=== PATIENT | male | born 1970 | race Caucasian/White ===

== ENCOUNTER 2023-03-08 08:19 | Day surgery (SDC) | payer OTHER, SELFPAY ==
[2023-03-08] VITALS (27 sets, daily range): BP systolic 98–160; BP diastolic 61–91; PULSE 53–75; RESP 14–18; TEMP 35.8–37.1; O2SAT 92–99; BMI 33.3
[2023-03-08] MEDS: LACTATED RINGERS 1000 ML 1,000 ML 100 ML IV ×2 (08:30→10:08)
[2023-03-08] MEDS: MIDAZOLAM HCL 1 MG/ML inj IVP (09:04)
[2023-03-08] MEDS: ACETAMINOPHEN 500 MG TABLET 1000 MG PO ×3 (09:04→20:32)
[2023-03-08] MEDS: OXYCODONE (CR) 10 MG TAB.ER.12H PO (09:04)
[2023-03-08] MEDS: fentaNYL 100 MCG/2 ML inj IVP (09:42)
--- NOTE | 2023-03-08 09:57 | SUR.PREOP ---
TIME?OUT:?0940 PT/RN/MDA?VERIFICATION?OF?SURGICAL?SITE,?PROCEDURE,?AND?CONSENT OBTAINED?PRIOR?TO?INVASIVE?PROCEDURE.
[2023-03-08] MEDS: CEFAZOLIN 2 GM in 0.9 % SODIUM CHLORIDE Mini-bag 100 ML IVPB ×3 (10:05→23:47)
[2023-03-08] MEDS: TRANEXAMIC ACID 100 MG/ML INJ 1000 MG IV (10:07)
--- NOTE | 2023-03-08 10:09 | CRLHL7_ITS ---
For Patients: As a result of the Cures Act, medical imaging exams and procedure reports are released immediately into your electronic medical record. You may view this report before your referring provider. If you have questions, please contact your health care provider. Indication: Postop Technique: Two views left knee Findings/Impression: Hardware from a left total knee arthroplasty is in satisfactory position. Bone alignment is normal. No sign of acute fracture. Postop changes are within normal limits. Dictated by Mal Espinoza MD @ 03/08/2023 12:31:56 PM (Electronically Signed)
--- NOTE | 2023-03-08 10:12 | W.PM.H&PU ---
History & Physical Update History & Physical Update H&P Reviewed and patient assessed: No changes noted
--- NOTE | 2023-03-08 11:34 | PM.ORPRC ---
Procedure Note Date of procedure: 03/08/23 Procedure: PREOPERATIVE DIAGNOSIS: 1. Left knee osteoarthritis, primary, severe POSTOPERATIVE DIAGNOSIS: 1. Left knee osteoarthritis, primary, severe PROCEDURE: 1. Left total knee arthroplasty SURGEON: Boni Hayward MD. SUPERVISOR ENDLESS TRACK VEHICLE: TIFFANY Majano - Of note, a skilled assistant customer service manager was critical for this case to aid in patient positioning, tissue retraction, limb manipulation/positioning, and closure. ANESTHESIA: Spinal anesthetic EBL: 50ml IMPLANTS: DePuy J&J uncemented femur/tibia, cemented patella TKA - Attune Press fit PS femur size 9, size 8 tibia, 5 poly spacer, 41mm cemented patella TOURNIQUET: 85 min at 300 torr COMPLICATIONS: None evident INDICATIONS: The patient is a pleasant 52-year-old male who has experienced severe left knee pain and difficulty bearing weight. Workup included x-rays which revealed severe osteoarthrosis in the knee. Given the deformity, the dysfunction, and the pain, as well as the failure of nonoperative management, recommendation was made for surgery. FINDINGS: Full-thickness chondral loss medial compartment diffusely with subchondral sclerotic bone. Significant meniscal pathology both compartments. Significant patellofemoral chondromalacia as well. To lesser degree lateral compartment. Small effusion upon entering the joint today. DESCRIPTION OF PROCEDURE: Following a thorough discussion of risks, benefits, and alternatives consent was obtained and the left knee was marked. The patient was brought to the operating room and placed supine on the operating table. Induction of anesthesia was undertaken. 3 g IV Ancef and 1 g tranexamic acid was administered within 1 hr of incision preoperatively. Proper time-out was performed identifying proper patient, site, procedure. The operative extremity was prepped and draped in the appropriate sterile fashion using ChloraPrep after the patient was positioned supine with all bony prominences well padded. A longitudinal, anterior, midline skin incision was made starting approximately 3cm proximal to the superior pole of the patella and advanced distal to the tibial tubercle. A median parapatellar arthrotomy was created. A medial subperiosteal sleeve was created with knife, ornelas elevator and curved osteotome. The retropatellar fatpad was resected and the synovium in the suprapatellar pouch excised to visualize the anterior femoral cortex. Femoral preparation was performed via an intramedullary guide. Step drill allowed access into the femoral canal. The distal cutting guide was placed with 5? of valgus and 12 mm cut on the distal femur. Femur was sized using a posterior referencing guide in 3? of external rotation. This found have a best fit with the sizing noted above. The 4 in 1 cutting block was then placed, and the distal femur shaped accordingly. The box cut was then created and the trial implant inserted to confirm appropriate fit. We turned our attention to the proximal tibia. Extramedullary guide was utilized for cutting with the goal of being 90 degree cut from the mechanical axis of the tibia in the varus/valgus plane utilizing tibial crest as the primary alignment. Initially a 2 mm resection was performed from the medial tibial plateau. Ultimately, balancing was achieved in both flexion and extension in both varus and valgus. The knee was able to achieve full extension comfortably. The patella was initially measured and found have a thickness of 27 mm. It was resected back to approximately 17 mm. It was sized to be a best fit with as noted above. This was drilled & trial placed. All trials were placed and found to have an excellent stability and balance. At this stage, trial implants were removed, the tibia and femoral components were opened and inserted. Thereafter, the patella was thoroughly irrigated normal saline and dried. The cement was previously mixed on the back table and cement placed followed by the implant. This was clamped and allowed remained stable until the cement cured. The real poly spacer was opened and inserted. All extra cement was removed, and a 3 min Betadine soak performed. Finally, a final irrigation round with normal saline was performed. Closure performed with 0 PDS and #0 Stratafix for the quad tendon/retinaculum. 2-0 Vicryl/Stratafix for the subcutaneous and 4-0 Monocryl for subcuticular closure. Dressings were applied and the patient was awoken from anesthesia after the tourniquet deflated and transferred the PACU in stable condition. A skilled assistant customer service manager was critical for this case to aid in patient positioning, tissue retraction, bone exposure, limb manipulation/positioning, patient safety, and closure. PLAN: 1. Weight bear as tolerated operative extremity. 2. 23 hr perioperative antibiotics. 3. Ice. 4. PT/OT consults for ambulation assistance/mobility education. 5. Social work consult for discharge planning. 6. DVT prophylaxis with at SCDs, Carmelo Hose, and aspirin twice daily.
--- NOTE | 2023-03-08 11:41 | W.PM.NB ---
Nerve Block Nerve Block Time Seen by Provider: 09:41 Date Seen: 03/08/23 Type of block requested by surgeon for post-operative analgesia: adductor canal Side: left Time out performed: Yes Verification of patient name: Yes Verification of date of : Yes Site marking: site marked Name of person performing procedure: Alessandro Continuous monitoring Was continuous monitoring of O2 sat, B/P, director television news, recorded every 15 minutes?: Yes Procedure Checklist: sterile prep, needles and gloves Ultrasound guided. Images saved: Yes Medications given in 5ml increments after negative aspiration: Ropivicaine %: 0.5 mL: 20 Needle gauge: 20 Decadron (mg): 10 Precedex (mcg): 25 Patient tolerated procedure well: Yes Additional comments: Needle noted adjacent to nerve Block Charges Block Charge (with Pro Fee): Femoral Nerve Use of Ultrasound Machine for Block: Yes- US Guidance/pain block
--- NOTE | 2023-03-08 11:44 | P.NB_ITS ---
Nerve Block Nerve Block Time Seen by Provider: 09:41 Date Seen: 03/08/23 Type of block requested by surgeon for post-operative analgesia: geniculars Side: left Time out performed: Yes Verification of patient name: Yes Verification of date of : Yes Site marking: site marked Name of person performing procedure: Alessandro Continuous monitoring Was continuous monitoring of O2 sat, B/P, community relations police lieutenant, recorded every 15 minutes?: Yes Procedure Checklist: sterile prep, needles and gloves Medications given in 5ml increments after negative aspiration: Ropivicaine %: 0.5 mL: 9 Needle gauge: 25 Patient tolerated procedure well: Yes Block Charges Block Charge (with Pro Fee): Genicular Nerve Block Use of Ultrasound Machine for Block: No
--- NOTE | 2023-03-08 11:44 | W.ANESCHARGE ---
Anesthesia Charges Start Date/Time Anesthesia Start Date: 03/08/23 Anesthesia Start Time: 09:48 Stop Date/Time Anesthesia Stop Date: 03/08/23 Anesthesia Stop Time: 12:00
--- NOTE | 2023-03-08 12:04 | W.ANESCHARGE ---
Anesthesia Charges Start Date/Time Anesthesia Start Date: 03/08/23 Anesthesia Start Time: 09:48 Stop Date/Time Anesthesia Stop Date: 03/08/23 Anesthesia Stop Time: 12:00
[2023-03-08] MEDS: OXYCODONE 5 MG TABLET PO ×4 (14:13→23:46)
--- NOTE | 2023-03-08 14:43 | P.IMCN_ITS ---
Date of Consult Consult date: 03/08/23 Requesting Physician: Orthopedics Primary Care Provider: Jarett Riley MD Consult Narrative Narrative: Dashawn Fernandez is a 52 year old male Past medical history significant for osteoarthritis bilateral knee, goiter (biopsied, nonoperative, no active treatment) is POD#0 s/p left total knee arthroplasty. The hospital medicine team was asked by the orthopedic surgery team to manage the patient's medical comorbidities. There have been no perioperative complications. Nursing reports no concerns. INVESTIGATIONS: EMR Reviewed; Pre-OP Reviewed Review of Systems Narrative: REVIEW OF SYSTEMS: Complete review of systems performed and negative unless otherwise stated in HPI or below. [facility] Medical History (Updated 03/08/23 @ 15:04 by Traci Alonzo PA-C) Multiple thyroid nodules ?E04.2 - Nontoxic multinodular goiter (ICD-10) Goiter ?E04.9 - Nontoxic goiter, unspecified (ICD-10) Social History What is your current living situation?: I presently have a place to live Problems where you live: no known problems In the past 12 months, utilities in danger of being shut off: no In past 12 months, lack of transportation kept you from medical appts, meetings, work, or getting things needed for daily living: no In the past 12 mos, have been you worried that your food would run out before you had money to buy more?: never true In the past 12 mos, the food you bought just didn't last and you didn't have money to buy more?: never true Highest level of school completed/degree received: Bachelor's degree Smoking Status: Never smoker Do you use any of these nicotine containing products: None Second hand tobacco smoke exposure: No How often do you have a drink containing alcohol: monthly or less How many standard drinks containing alcohol do you have on a typical day: 1 or 2 How often do you have six or more drinks on one occasion: Never AUDIT-C Alcohol total score: 1 Non-prescribed substance use: denies use Caffeine: No How often does anyone, including family, friends and others, physically hurt you : never How often does anyone, including family, friends and others, insult or talk down to you: never How often does anyone, including family, friends and others, threaten you with harm: never How often does anyone, including family, friends and others, scream or curse at you: never service: No Meds Home Medications and Allergies Home Medication Comments: hold home ibuprofen postoperatively Allergies Allergy/AdvReac Type Severity Reaction Status Date / Time No Known Drug Allergies Allergy Verified 03/08/23 08:33 Exam Narrative: Exam Narrative: PHYSICAL EXAM General: Pleasant, conversant, NAD HEENT: Normocephalic, atraumatic, sclera white, EOMI, oral mucosa moist Cardiovascular: RRR, S1S2. No pitting edema Pulmonary: CTA bilaterally without rhonchi, rales, expiratory wheezes. No dyspnea Neurological: Alert, answering questions appropriately, cranial nerves intact, no focal findings Extremities: No gross joint deformity or swelling. LLE, postoperative exam appropriate. Skin: Warm, dry. No rash Const: Vital Signs, click to edit/add: Vital Signs - 24 hr 03/08/23 08:42 03/08/23 09:40 03/08/23 09:45 Temperature 97.5 F L Pulse Rate 70 70 70 Pulse Rate [Pulse Oximeter] Respiratory Rate 16 16 16 Blood Pressure 130/83 160/77 H 154/74 H Blood Pressure [Le ft Arm] Pulse Oximetry 98 99 99 Oxygen Delivery Me thod Room Air Nasal Cannula Nasal Cannula Oxygen Flow Rate 2 2 03/08/23 11:59 03/08/23 12:05 03/08/23 12:10 Temperature 97.6 F Pulse Rate 65 56 L 57 L Pulse Rate [Pulse Oximeter] Respiratory Rate 14 16 16 Blood Pressure 101/67 99/61 98/62 Blood Pressure [Le ft Arm] Pulse Oximetry 92 96 97 Oxygen Delivery Me thod OxyMask Oxygen Flow Rate 6 03/08/23 12:15 03/08/23 12:20 03/08/23 12:25 Temperature Pulse Rate 56 L 60 69 Pulse Rate [Pulse Oximeter] Respiratory Rate 16 14 16 Blood Pressure 101/62 100/67 102/64 Blood Pressure [Le ft Arm] Pulse Oximetry 97 95 95 Oxygen Delivery Me thod Room Air Oxygen Flow Rate 03/08/23 12:30 03/08/23 12:41 03/08/23 12:45 Temperature 96.9 F L 96.8 F L 96.7 F L Pulse Rate 66 59 L Pulse Rate [Pulse Oximeter] 60 Respiratory Rate 16 14 16 Blood Pressure 108/76 Blood Pressure [Le ft Arm] 115/76 109/85 Pulse Oximetry 96 97 Oxygen Delivery Me thod Room Air Oxygen Flow Rate 03/08/23 13:00 03/08/23 13:15 03/08/23 13:30 Temperature 96.4 F L 96.9 F L 96.4 F L Pulse Rate Pulse Rate [Pulse Oximeter] 53 L 56 L 57 L Respiratory Rate 16 14 14 Blood Pressure Blood Pressure [Le ft Arm] 117/72 115/80 123/91 H Pulse Oximetry 99 97 98 Oxygen Delivery Me thod Room Air Room Air Room Air Oxygen Flow Rate 03/08/23 14:00 Temperature 96.6 F L Pulse Rate Pulse Rate [Pulse Oximeter] 65 Respiratory Rate 14 Blood Pressure Blood Pressure [Le ft Arm] 118/79 Pulse Oximetry 96 Oxygen Delivery Me thod Room Air Oxygen Flow Rate Assessment and Plan Assessment and plan (1) Osteoarthritis of left knee: Problem comment: POD#0, s/p LTKA. Perioperative and pain management, postoperative anticoagulation per primary Orthopedic Surgery team Status: Acute (2) Goiter: Problem comment: no active treatment. outpatient follow-up Status: Acute
--- NOTE | 2023-03-08 19:24 | PC.NURSE ---
End of Shift: Patient pleasant and cooperative. Patient vitally stable, lungs clear, BS WNL, IV running LR at 75. Patient rates pain at most 7/10, 5 mg of oxy given once and 10 mg of oxy given once. Patient had 1 unmeasured voided while ambulating. Patient 1 assist, walker, gb. Patient currently up in chair. Patient tolerating regular diet. Left knee dressing C/D/I.
[2023-03-08] MEDS: ASPIRIN 81 MG TABLET EC PO (20:33)
[2023-03-08] MEDS: SENNOSIDES 1 TAB TABLET 2 TAB PO (20:33)
[2023-03-09 03:00] VITALS: BP 119/71; PULSE 68; RESP 18; TEMP 36.7; O2SAT 91
[2023-03-09] MEDS: ACETAMINOPHEN 500 MG TABLET 1000 MG PO ×2 (03:22→09:06)
--- NOTE | 2023-03-09 05:18 | PC.NURSE ---
[id number]: Patient talkative and pleasant. Pain controlled with PRN Oxycodone. Dressing to L. knee C/D/I. CMS intact. Cryocuff to op site. Denies N/V. Eating and voiding.
[2023-03-09] MEDS: OXYCODONE 5 MG TABLET PO ×2 (06:05→08:21)
[2023-03-09 06:44] LABS: Hematocrit 40.5 % (37.0-53.0); Hemoglobin* 13.8 gm/dL (13.5-17.5); Immature Granulocytes Pct Auto 0.2 %; Lymphocytes Percent Auto 8.2 % (20-44); Mean Corpuscular HGB Conc 34 gm/dL (32-36); Mean Corpuscular Hemoglobin 31 pg (26-34); Mean Corpuscular Volume 90 fL (80-100); Monocytes Percent Auto 10.5 % (0.0-11.0); Neutrophils Percent Auto 81.1 % (42.0-72.0); Platelet Count* 237 K/uL (140-440); RDW Coefficient of Variation % 12.1 % (11.5-15.5); White Blood Count* 16.93 K/uL (4.50-11.00)
[2023-03-09 06:57] LABS: Potassium* 4.3 mmol/L (3.6-5.1); Sodium* 136 mmol/L (135-149)
[2023-03-09 06:58] LABS: Slide Review Reflex No
[2023-03-09 07:00] VITALS: BP 139/72; PULSE 68; PULSE 89; RESP 20; TEMP 36.8; O2SAT 96
[2023-03-09 07:00] LABS: Creatinine* 1.1 mg/dL (0.5-1.5); Est. Creatinine Clearance* 95.35; Estimated Glomerular Filt Rate 80 ml/min
[2023-03-09 07:01] LABS: Blood Urea Nitrogen* 22 mg/dL (7-30)
[2023-03-09] MEDS: CEFAZOLIN 2 GM in 0.9 % SODIUM CHLORIDE Mini-bag 100 ML IVPB (08:22)
[2023-03-09] MEDS: ASPIRIN 81 MG TABLET EC PO (09:06)
[2023-03-09] MEDS: SENNOSIDES 1 TAB TABLET 2 TAB PO (09:07)
--- NOTE | 2023-03-09 09:48 | PM.ORPN ---
Subjective Subjective Date Seen: 03/09/23 Principal diagnosis: Status postop day 1 left total knee arthroplasty Interval history: Patient reports doing well. No acute events over night. Pain managed with scheduled and PRN medications, ice. DVT prophylaxis: Aspirin, bilateral knee high Carmelo stockings, SCDs, walking. []Denies fevers, chills, aches, N/V, CP, SOB/VEGA, or lightheadedness. No flatus. Ortho Exam Narrative Exam Narrative: -Patient appears comfortable; no apparent acute distress -Alert and oriented times 3 -Operative knee mildly swollen; soft tissues supple; no ecchymosis; no erythematous streaking Warmth appropriate -Surgical dressing clean, dry, intact; no drainage -Bilateral calfs soft; no significant swelling, edema, tenderness, erythema, discoloration, warmth, or palpable cords -2+ DP/PT pulses, intact dermatomes and myotomes distally (5/5 strength) Const Vital Signs, click to edit/add: Vital Signs - 24 hr 03/08/23 11:59 03/08/23 12:05 03/08/23 12:10 Temperature 97.6 F Pulse Rate 65 56 L 57 L Pulse Rate [Pulse Oximeter] Respiratory Rate 14 16 16 Blood Pressure 101/67 99/61 98/62 Blood Pressure [Left Arm] Blood Pressure [Right Arm] Pulse Oximetry 92 96 97 Oxygen Delivery Method OxyMask Oxygen Flow Rate 6 03/08/23 12:15 03/08/23 12:20 03/08/23 12:25 Temperature Pulse Rate 56 L 60 69 Pulse Rate [Pulse Oximeter] Respiratory Rate 16 14 16 Blood Pressure 101/62 100/67 102/64 Blood Pressure [Left Arm] Blood Pressure [Right Arm] Pulse Oximetry 97 95 95 Oxygen Delivery Method Room Air Oxygen Flow Rate 03/08/23 12:30 03/08/23 12:41 03/08/23 12:45 Temperature 96.9 F L 96.8 F L 96.7 F L Pulse Rate 66 59 L Pulse Rate [Pulse Oximeter] 60 Respiratory Rate 16 14 16 Blood Pressure 108/76 Blood Pressure [Left Arm] 115/76 109/85 Blood Pressure [Right Arm] Pulse Oximetry 96 97 Oxygen Delivery Method Room Air Oxygen Flow Rate 03/08/23 13:00 03/08/23 13:15 03/08/23 13:30 Temperature 96.4 F L 96.9 F L 96.4 F L Pulse Rate Pulse Rate [Pulse Oximeter] 53 L 56 L 57 L Respiratory Rate 16 14 14 Blood Pressure Blood Pressure [Left Arm] 117/72 115/80 123/91 H Blood Pressure [Right Arm] Pulse Oximetry 99 97 98 Oxygen Delivery Method Room Air Room Air Room Air Oxygen Flow Rate 03/08/23 14:00 03/08/23 14:30 03/08/23 15:30 Temperature 96.6 F L 97.5 F L 97 F L Pulse Rate Pulse Rate [Pulse Oximeter] 65 61 65 Respiratory Rate 14 14 14 Blood Pressure Blood Pressure [Left Arm] 118/79 121/82 124/72 Blood Pressure [Right Arm] Pulse Oximetry 96 94 94 Oxygen Delivery Method Room Air Room Air Room Air Oxygen Flow Rate 03/08/23 16:29 03/08/23 16:29 03/08/23 16:30 Temperature 97.3 F L Pulse Rate Pulse Rate [Pulse Oximeter] 65 63 Respiratory Rate 14 14 Blood Pressure Blood Pressure [Left Arm] 117/81 Blood Pressure [Right Arm] Pulse Oximetry 94 95 Oxygen Delivery Method Room Air Oxygen Flow Rate 03/08/23 17:30 03/08/23 18:30 03/08/23 19:22 Temperature 97.5 F L 98.7 F 98.4 F Pulse Rate Pulse Rate [Pulse Oximeter] 67 74 68 Respiratory Rate 14 14 16 Blood Pressure Blood Pressure [Left Arm] 132/83 149/87 H 128/78 Blood Pressure [Right Arm] Pulse Oximetry 94 94 98 Oxygen Delivery Method Room Air Room Air Room Air Oxygen Flow Rate 03/08/23 20:32 03/08/23 21:29 03/08/23 23:00 Temperature 98.4 F 98.4 F Pulse Rate Pulse Rate [Pulse Oximeter] Respiratory Rate Blood Pressure Blood Pressure [Left Arm] Blood Pressure [Right Arm] Pulse Oximetry 95 Oxygen Delivery Method Oxygen Flow Rate 03/08/23 23:41 03/09/23 03:00 Temperature 98.1 F 98.1 F Pulse Rate Pulse Rate [Pulse Oximeter] 75 68 Respiratory Rate 18 18 Blood Pressure Blood Pressure [Left Arm] 119/71 Blood Pressure [Right Arm] 127/75 Pulse Oximetry 95 91 Oxygen Delivery Method Room Air Room Air Oxygen Flow Rate Assessment and Plan Assessment and plan (1) Osteoarthritis of left knee: Problem details: POD#1, s/p LTKA. Perioperative and pain management, postoperative anticoagulation per primary Orthopedic Surgery team Status: Acute (2) Goiter: Problem details: no active treatment. outpatient follow-up Status: Acute (3) Status post total knee replacement, left: Problem details: 03/08/2023 Status: Acute Plan - Complete 23 hour perioperative antibiotics. - PT/OT consult for education and assistance. - Social work consult for discharge planning - Prescribed analgesics as needed - DVT prophylaxis: 81 mg aspirin by mouth twice daily, bilateral knee high Carmelo Hose stockings and SCDs - Anticipation is for discharge to home with spouse today 03/09/2023 if the patient remains medically stable, pain is controlled, and they are safe with mobilization.
--- NOTE | 2023-03-09 13:37 | PC.NURSE ---
Patient alert and oriented. Tolerated walking with stand by assist and walker. Tolerated regular diet. BS active x 4. Rated pain 1/10 in his left femur and reported some discomfort in his left knee. PRN Oxycodone given at 0820 prior to therapy. Discharged at 1136. Patient was wheeled to main entrance by RN and accompanied by . Patient left facility transported by .
== END 2023-03-09 11:36 | disposition home or self-care (01) ==
LOC: OR 08:21 → MEDSURG 08:24
PROVIDERS: PCP Family Medicine; Visit Provider Orthopaedic Surgery Sports Medicine
PROC: (CPT 27447; principal; 2023-03-08 10:30)
DX: M17.12 Unilateral primary osteoarthritis, left knee (principal); G89.18 Other acute postprocedural pain; E04.2 Nontoxic multinodular goiter
CPT/HCPCS: 27447; 01400; 01402; 36415; 64447; 64454; 73560; 76942; 82565; 84132; 84295; 84520; 85025; 97110; 97116; 97161; 97165; 97535; A9270; C1776; J0690; J1100; J2250; J2371; J2405; J2704; J2795; J3010; J7120

== ENCOUNTER 2023-06-02 11:00 | Outpatient (RCR) | payer OTHER, SELFPAY ==
--- NOTE | 2023-04-21 12:28 | PT.OPDN ---
PT [facility] Outpatient Daily Note PT [facility] Outpatient Daily Note Start: 02/17/23 16:00 Freq: Status: Active Protocol: Document 04/21/23 09:35 CJT (Rec: 04/21/23 09:42 CJT [id number]) E-signed By Silver Herrera, PT PT OP Daily Progress Note Visit Information Note Type Recert/Progress Note Visit Number 13 Insurance Authorized Visits no auth required Physician Authorized Visits eval and treat Insurance Information Recert Due Date 05/19/23 Insurance Name [facility] Medical Diagnosis Z96.652 - L TKA Treating Diagnosis Z96.652 - L TKA Referring Boni Fagan MD Subjective Subjective Pt reports he has had more bad days than good days this past week. Occasionally he will not feel his L knee at all when he lays on his back at night with his knee straight. Back has been cramping frequently though. Has been going to gym twice daily. Biking for 15-20 minutes, stretching on the leg press and feels he is going deeper and deeper with his knee flexion. Preferred Name Dashawn Home Exercise Home Exercise Comments Post-op TKA Objective Other/Pertinent Objective L knee AROM: 8-110 (pre- stretch), 2-116 (post-stretch) L knee flexion: 5/5 MMT L knee extension: 4/5 MMT Patient Instructed in Risks/Benefits Yes Therapeutic Exercise Therapeutic Exercise Minutes (minutes) 46 Therapeutic Exercise: To Restore Bike - 10 minutes Functional Status Quad extension machine eccentrics, L only 2 x 8, 25# Quad extension machine 2 x 8, 45# Leg press, 4 x 12/10/8/6 @ 80, 120, 140, 160# Arm bar stretch 2 x 30, 60 Knee extension stretch with OP 2 x 60, 120 Manual Therapy Techniques Manual Therapy Minutes (minutes) 16 Manual Therapy Techniques IASTM to L anterior knee, posterior knee, gastroc, and hamstrings to diminish adhesions and improve tissue extensibility. Treatment Minutes Timed Code Treatment Minutes 62 Total Treatment Time 62 Billing Units Manual Therapy Units 1 Therapeutic Exercise Units 3 Assessment/Impression Assessment/Impression Dashawn's progress post surgery has been quite challenging due to his lack of pain control and pain tolerance. His pain tolerance is the worst I have seen for a TKA and this has made stretching and restoring L knee ROM very challenging in the clinic, and even more challenging for Dashawn at home. Over the past few weeks, most of our time in therapy has been focused on improving Dashawn's knee flexion and extension ROM which remains limited to 2-116 degrees following long duration stretching (8-110 pre-stretch) . He tells me that he has been holding his stretches longer at the gym (previously 30 seconds, now up to 15 minutes) and he is beginning to show more consistent progress. I am still concerned for his ROM at this time and we will continue to focus on this aspect of his rehabilitation until his goals are met. Dashawn 's L quad strength remains limited as well, however, I am less concerned about his strength at this time as he has excellent muscle tone and I would imagine that his strength will improve quickly for him as we gradually shift our focus from stretching to functional strength. Recommend continue therapy services to address deficits and return pt to highest level of function. Plan of Care Physical Therapy Goals STG - To be completed in 2-3 weeks: 1. Pt will report consistent use of ice as well as elevation of surgical limb while resting to reduce inflammation and swelling. MET 2. Pt will demonstrate 90 degrees of knee flexion on surgical limb to reduce risk of contracture development and progress through rehabilitation as expected. MET 3. Pt to show appropriate use of all AD's with minimal gait deviations and no LOB with all ambulation to reduce risk of falls and restore normal gait mechanics. MET LTG - To be completed in 8-12 weeks: 1. Pt to be I with HEP so that they may I manage progression of symptoms. 2. Pt will demonstrate 120 degrees knee flexion on surgical limb so that they may descend steps without restrictions in ROM. 3. Pt will perform 10+ squats with good control over medial/ lateral deviation of knees to show improved functional strength to assist with transfers. 4. Pt will demonstrate 5/5 MMT knee flexion/extension of surgical limb to provide greater support to knee joint and allow for ease of ambulation. 5. Pt will demo ability ambulate normal gait so he may return to walking for pleasure with his . Daily Plan of Care Continue per POC
== END 2023-06-07 09:12 | disposition home or self-care (01) ==
PROVIDERS: Visit Provider Orthopaedic Surgery Sports Medicine
DX: M17.0 Bilateral primary osteoarthritis of knee (principal); Z96.653 Presence of artificial knee joint, bilateral; Z51.89 Encounter for other specified aftercare
CPT/HCPCS: 97016; 97035; 97110; 97116; 97140; 97161; 97164; 97530

== ENCOUNTER 2024-03-15 06:04 | Day surgery (SDC) | payer OTHER, SELFPAY ==
[2024-03-15] VITALS (17 sets, daily range): BP systolic 105–141; BP diastolic 60–89; PULSE 56–81; RESP 13–16; TEMP 35.4–36.6; O2SAT 93–100; BMI 36.1
--- OUTSIDE RECORDS SUMMARY | 2024-03-15 06:06 | XMS_ITS | Clinical Summary ---
Author Organization [facility] Address [place], [place] [address] Care Team Providers Care Emergency Medicine Specialist Name Role Phone Jarett Riley MD Primary Care Provider [phone] Allergies No known active allergies Medications Medication Sig Dispensed Refills Start Date End Date Status methylPREDNISolon e (methylPRED DP) 4 mg tablet As directed 4 mg. Take by mouth as instructed per packaging. 03/01/2024 Discontinued (*Patient states no longer taking) Active Problems Problem Noted Date Diagnosed Date Osteoarthritis of right knee 03/01/2024 Status post total knee replacement, left 024 Multiple thyroid nodules 12/27/2013 Goiter 12/26/2013 Resolved Problems Problem Noted Date Diagnosed Date Resolved Date Osteoarthritis of left knee 03/01/2024 03/01/2024 RUQ pain 12/26/2013 03/01/2024 Encounters Date Type Department Care Team Description 03/03/2024 Telephone [facility] [address] [place] [address] Redd Elizabeth MD Results (/) 03/01/2024 4:15 PM CDT Office Visit [facility] [address] [place] [address] Redd Elizabeth MD Preoperative Exam (DOS 03/15/24) 03/01/2024 Travel from Last 3 Months Immunizations Name Administration Dates Next Due COVID-19 vaccine (Moderna 10 0mcg/0.5mL) VONNIE SEN 09/20/2020,08/23/2020 COVID-19 vaccine (Pfizer-Bio NTech 30mcg/0.3mL) 12YO+ BIVALENT PF, MDV 03/04/2022 INFLUENZA, IIV3 PF (AGE >= 6 MO) 03/01/2024 Influenza, IIV3 (Age >=3 years) 04/01/2014 Influenza, IIV4 04/02/2021,05/21/2020,02/12/2019 Influenza,CCIIV4 PRESERV FREE 03/04/2022 Td (Age >=7 Years) 04/10/2021 Tdap 04/17/2010 Social History Tobacco Use Types Packs/Day Years Used Date Smoking Tobacco: Never Passive Smoke Exposure: Never Smokeless Tobacco: Never Tobacco Cessation:Counseling Given: No Alcohol Use Standard Drinks/Week Comments No 0 (1 standard drink = 0.6 oz pur e alcohol) PHQ-2 Answer Date Recorded PHQ-2 TOTAL SCORE 0 02/19/2023 Social Connections Answer Date Recorded Frequency of Communication with Friends and Fami ly 0 03/01/2024 Financial Resource Strain Answer Date R ecorded Difficulty of Paying Living Expenses 3 03/01/2024 Difficulty of Paying Living Expenses Not on file 03/01/2024 Food Insecurity Answer Date Recorded Worried About Running Out of Food in the Last Ye ar 1 03/01/2024 Transportation Needs Answer Date Record ed Lack of Transportation (Medical) 1 03/01/2024 Housing Stability Answer Date Recorded Unable to Pay for Housing in the Last Year 1 03/01/2024 Sex and Gender Information Value Date Recorded Sex Assigned at Not on file Gender Identity Not on file Sexual Orientation Not on file Obstetrics History Last Filed Vital Signs Vital Sign Reading Time Taken Comments Blood Pressure 124/86 03/01/2024 4:33 PM CDT Pulse 68 03/01/2024 4:33 PM CDT Temperature 36.5 ??C (97.7 ??F) 03/01/2024 4:33 PM CD T Respiratory Rate - - Oxygen Saturation 97% 03/01/2024 4:33 PM CDT Inhaled Oxygen Concentration - - Weight 130.8 kg (288 lb 6.4 oz) 03/01/2024 4:33 PM CDT Height 191.1 cm (6' 3.25) 03/01/2024 4:33 PM CD T Body Mass Index 35.81 03/01/2024 4:33 PM CDT Plan of Treatment Health Maintenance Due Date Last Done Comments HIV for age 15-65 1984 Hepatitis C screening for age 18-79 1987 Zoster (shingles) series for age 50+ (1 of 2) 2019 COVID-19 vaccine series ( - 2022-24 season) 2024 03/04/2022, 04/19/2021, 09/20/2020, Additional history exists Depression screening for age 12+ 02/20/2024 02/19/2023, 04/10/2021 BMI (ht and wt on same day) for age 18+ 03/01/2025 03/01/2024, 02/19/2023, 04/10/2021 Lipids for age 45-75 04/10/2026 04/10/2021, 12/26/19 14 Tetanus booster 04/10/2031 04/10/2021, 04/17/2010 Colonoscopy through age 75 07/09/2031 07/09/2021, Tdap Completed 04/17/2010 Influenza for age 50-64 Completed 03/01/20, 03/04/2022, 04/02/2021, Additional history exists Pneumococcal series for age 6-64 Aged Out No longer eligible based on patient's age to complete this topic Procedures Procedure Name Priority Date/Time Associated Diagnosis Comments CBC WITH AUTO DIFFERENTIAL Routine 03/01/2024 4:53 PM CDT Preop examination BASIC METABOLIC PANEL Routine 03/01/2024 4:53 PM CDT Preop examination CBC WITH AUTO DIFFERENTIAL Routine 03/01/2024 4:53 PM CDT Preop examination COLONOSCOPY SCREENING Routine 07/09/2021 8:25 AM RESOLUTION EXPERT Screening for colon cancer LIPID PANEL W REFLEX MEASURED LDL Routine 04/10/2021 8:23 AM CDT Screening cholesterol level from Last 3 Months or Most Recently Relevant to Health Maintenance Results * (ABNORMAL) CBC WITH AUTO DIFFERENTIAL (03/01/2024 4:53 PM CDT) WHITE BLOOD COUNT 5.7 4.5 - 11.0 thou/cu mm 03/01/2024 4:59 PM CDT [facility] RED BLOOD COUNT 4.67 4.30 - 5.90 mil/cu mm 03/01/2024 4:59 PM CDT [facility] HEMOGLOBIN 15.3 13.5 - 17.5 g/dL 03/01/2024 4:59 PM CDT [facility] HEMATOCRIT 42.4 37.0 - 53.0 % 03/01/2024 4:59 PM CDT [facility] MCV 91 80 - 100 fL 03/01/2024 4:59 PM CDT [facility] MCH 32.8 26.0 - 34.0 pg 03/01/2024 4:59 PM CDT [facility] MCHC 36.1(H) 32.0 - 36.0 g/dL 03/01/2024 4:59 PM CDT [facility] RDW 12.6 11.5 - 15.5 % 03/01/2024 4:59 PM CDT [facility] PLATELET COUNT 227 140 - 440 thou/cu mm 03/01/2024 4:59 PM CDT [facility] MPV 9.9 6.5 - 11.0 fL 03/01/2024 4:59 PM CDT [facility] % NEUT 44.6 % 03/01/2024 4:59 PM CDT [facility] % LYMPH 41.3 % 03/01/2024 4:59 PM CDT [facility] % MONO 10.4 % 03/01/2024 4:59 PM CDT [facility] % EOS 3.0 % 03/01/2024 4:59 PM CDT [facility] % BASO 0.7 % 03/01/2024 4:59 PM CDT [facility] ABSOLUTE NEUTROPHILS 2.5 1.7 - 7.0 thou/cu mm 03/01/2024 4:59 PM CDT [facility] ABSOLUTE LYMPHOCYTES 2.3 0.9 - 2.9 thou/cu mm 03/01/2024 4:59 PM CDT [facility] ABSOLUTE MONOCYTES 0.6 <0.9 thou/cu mm 03/01/2024 4:59 PM CDT [facility] ABSOLUTE EOSINOPHILS 0.2 <0.5 thou/cu mm 03/01/2024 4:59 PM CDT [facility] ABSOLUTE BASOPHILS 0.0 <0.3 thou/cu mm 03/01/2024 4:59 PM CDT [facility] Blood BLOOD SPECIMEN / Unknown Venipuncture / Unknown 03/01/2024 4:53 PM CDT 03/01/2024 4:54 PM CDT Redd Elizabeth MD HEMATOLOGY [facility] [address] [place] [address], * BASIC METABOLIC PANEL (03/01/2024 4:53 PM CDT) SODIUM 139 136 - 145 mmol/L 03/02/2024 6:39 PM CDT [facility] POTASSIUM 4.3 3.5 - 5.1 mmol/L 03/02/2024 6:39 PM CDT [facility] CHLORIDE 102 98 - 107 mmol/L 03/02/2024 6:39 PM CDT [facility] CO2,TOTAL 23 22 - 29 mmol/L 03/02/2024 6:39 PM CDT [facility] ANION GAP 14 5 - 18 03/02/2024 6:39 PM CDT [facility] GLUCOSE 94 70 - 99 mg/dL 03/02/2024 6:39 PM CDT [facility] CALCIUM 9.2 8.6 - 10.0 mg/dL 03/02/2024 6:39 PM CDT [facility] BUN 12 6 - 20 mg/dL 03/02/2024 6:39 PM CDT [facility] CREATININE 0.97 0.70 - 1.20 mg/dL 03/02/2024 6:39 PM CDT [facility] BUN/CREAT RATIO 12 10 - 20 09/12/202 4 6:39 PM CDT [facility] eGFR >90 >90 mL/min/1.7 3m2 03/02/2024 6:39 PM CDT [facility] Comment:As of 2021, eG FR is calculated by the CKD-EPI creatinine equation without race adjustment. ??eGFR can be influenced by muscle mass, exercise, and diet. ??The reported eGFR is an estimation only and is only applicable if the renal function is stable. Blood BLOOD SPECIMEN / Unknown Venipuncture / Unknown 03/01/2024 4:53 PM CDT 03/01/2024 4:54 PM CDT Redd Elizabeth MD CHEMISTRY [facility] [address] [place] [address], * COLONOSCOPY (07/09/2021 7:42 AM RESOLUTION EXPERT) 07/09/2021 7:42 AM RESOLUTION EXPERT Narrative Transcriptions Bebo Trimble MD - 07/09/2021 9:12 AM CST Patient Name: Dashawn Fernandez Procedure Date: 07/09/2021 Gender: Male Date of : 1970 Admit Type: Outpatient Procedure: Colonoscopy Proceduralist: Bebo Trimble MD , Yvette Johns, RN(Nurse) Referring MD: Paige Burch Indications/Pre-Op Diagnosis: Screening in patient at increased risk: Colorectal cancer in brother before age 60, This is the patient's first colonoscopy Medications: Fentanyl 100 micrograms IV, Midazolam 4 mgIV, The level of sedation administered wasmoderate Procedure Description: The patient had risks, benefits and alternatives explained to andgave informed consent. The patient had a stable cardiopulmonary status and judged an adequate candidate for conscious sedation. The Colonoscope was passed through the anus and advanced to thececum, identified by appendiceal orifice and ileocecal valve. Thecolonoscopy was performed without difficulty. The patient tolerated the procedure well. The quality of the bowel preparation was good. The ileocecal valve, appendiceal orifice, and rectum were photographed. Complications: No immediate complications. Estimated Blood Loss & Specimen: Estimated blood loss: none. Specimen collected - None Findings: The perianal and digital rectal examinations were normal. The entire examined colon appeared normal on direct and retroflexion views. Impressions/Post-Op Diagnosis: - The entire examined colon is normal on direct and retroflexionviews. - No specimens collected. Recommendation: - Patient has a contact number available for emergencies. The signsand symptoms of potential delayed complications were discussed with the patient. Return to normal activities tomorrow. Written discharge instructions were provided to the patient. - Resume previous diet. - Continue present medications. - Repeat colonoscopy in 5 years for screening purposes. Moderate Sedation: Moderate (conscious) sedation was administered by the endoscopy nurse and supervised by the endoscopist. The following parameters were monitored: oxygen saturation, heart rate, respiratory rate, blood pressure, adequacy of pulmonary ventilation and reponse to care. Please refer to the patient's medical record flowsheets and nursing notes for moderate sedation details. Total physician intraservice time was 15 minutes. Bebo Trimble MD 07/09/2021 9:12:38 AM This report has been signed electronically. Note Initiated On: 07/09/2021 7:42 AM Procedure Code(s): --- Professional --- 85388, Colonoscopy, flexible; diagnostic, including collection of specimen(s) bybrushing or washing, when performed (separateprocedure) Diagnosis Code(s): --- Professional --- Z80.0, Family history of malignant neoplasmof digestive organs CPT copyright 2020 [employer]. All rights reserved. The codes documented in this report are preliminary and upon logistics service representative reviewmay be revised to meet current compliance requirements. Scope In: 8:51:30 AM Scope Withdrawal Time 0 hours 9 minutes 51 seconds Scope Out: 9:05:05 AM Bebo Trimble MD PROCEDURE ORD * LIPID PANEL W REFLEX MEASURED LDL (04/10/2021 8:23 AM CDT) CHOLESTEROL,TOTAL 166 100 - 199 mg/dL 04/10/2021 3:52 PM CDT [facility] TRIGLYCERIDES 100 <150 mg/dL 04/10/2021 3:52 PM CDT [facility] HDL CHOLESTEROL 50 >40 mg/dL 3:52 PM CDT [facility] NON-HDL CHOLESTEROL 116 <145 mg/dl 04/10/2021 3:52 PM CDT [facility] CHOL/HDL RATIO 3.32 <4.50 04/10/2021 3:52 PM CDT [facility] LDL CHOLESTEROL 96 <=130 mg/dL 04/10/2021 3:52 PM CDT [facility] VLDL CHOLESTEROL 20 <=30 mg/dL 04/10/2021 3:52 PM CDT [facility] PROVIDER ORDERED STATUS FASTING 04/10/2021 3:52 PM CDT [facility] Blood BLOOD SPECIMEN / Unknown Butterfly / Unknown 04/10/2021 8:23 AM CDT 04/10/2021 8:23 AM CDT Paige Burch DO CHEMI[facility] [address] [place] [address], from Last 3 Months or Most Recently Relevant to Health Maintenance Care Teams Emergency Medicine Specialist Relationship Specialty Start Date End Date [place] [address] PCP - General Family Practice 02/19/23
[2024-03-15] MEDS: LACTATED RINGERS 1000 ML 1,000 ML 100 ML IV ×2 (06:26→07:50)
[2024-03-15] MEDS: ACETAMINOPHEN 500 MG TABLET 1000 MG PO (06:27)
[2024-03-15] MEDS: SODIUM CHLORIDE 0.9 % (FLUSH) 10 ML SYRINGE IVF (06:27)
[2024-03-15] MEDS: OXYCODONE (CR) 10 MG TAB.ER.12H PO (06:27)
[2024-03-15] MEDS: MIDAZOLAM HCL 1 MG/ML inj IVP (07:19)
[2024-03-15] MEDS: fentaNYL 100 MCG/2 ML inj IVP (07:19)
--- NOTE | 2024-03-15 07:20 | W.PM.H&PU ---
History & Physical Update History & Physical Update H&P Reviewed and patient assessed: No changes noted
--- NOTE | 2024-03-15 07:36 | SUR.PREOP ---
TIME?OUT:?0719 PT/RN/MDA?VERIFICATION?OF?SURGICAL?SITE,?PROCEDURE,?AND?CONSENT OBTAINED?PRIOR?TO?INVASIVE?PROCEDURE.
[2024-03-15] MEDS: CEFAZOLIN 2 GM in 0.9 % SODIUM CHLORIDE Mini-bag 100 ML IVPB (07:45)
[2024-03-15] MEDS: TRANEXAMIC ACID 100 MG/ML INJ 1000 MG IV (07:49)
--- NOTE | 2024-03-15 09:13 | P.ORPRC_ITS ---
Procedure Note Date of procedure: 03/15/24 Procedure: PREOPERATIVE DIAGNOSIS: 1. Right knee osteoarthritis, primary, severe POSTOPERATIVE DIAGNOSIS: 1. Right knee osteoarthritis, primary, severe PROCEDURE: 1. Right total knee arthroplasty - sub vastus SURGEON: Boni Hayward MD. CYBER DEFENSE ANALYST: TIFFANY Majano - Of note, a skilled investigative assistant was critical for this case to aid in patient positioning, tissue retraction, limb manipulation/positioning, and closure. ANESTHESIA: Spinal anesthetic EBL: 50ml IMPLANTS: DePuy J&J uncemented femur/tibia, cemented patella TKA - Attune Press fit PS femur size 8, size 8 tibia, 5mm poly spacer, 41mm cemented patella TOURNIQUET: 90 min at 300 torr COMPLICATIONS: None evident INDICATIONS: The patient is a pleasant 53-year-old male who has experienced severe right knee pain and difficulty bearing weight. Workup included x-rays which revealed severe osteoarthrosis in the knee. Given the deformity, the dysfunction, and the pain, as well as the failure of nonoperative management, recommendation was made for surgery. FINDINGS: Full-thickness chondral loss diffusely throughout the medial and patellofemoral compartments. Degenerative medial meniscus tearing. Moderate effusion upon entering the joint. DESCRIPTION OF PROCEDURE: Following a thorough discussion of risks, benefits, and alternatives consent was obtained and the right knee was marked. The patient was brought to the operating room and placed supine on the operating table. Induction of anesthesia was undertaken. 3 g IV Ancef and 1 g tranexamic acid was administered within 1 hr of incision preoperatively. Proper time-out was performed identifying proper patient, site, procedure. The operative extremity was prepped and draped in the appropriate sterile fashion using Chl oraPrep after the patient was positioned supine with all bony prominences well padded. A longitudinal, anterior, midline skin incision was made starting approximately 3cm proximal to the superior pole of the patella and advanced distal to the tibial tubercle. A sub vastus approach was utilized. After mobilizing the patella, retropatellar fatpad was resected and the synovium in the suprapatellar pouch excised to visualize the anterior femoral cortex. We began with cutting the patella to help improve mobility of this patella and quad tendon. The patella was initially measured and found have a thickness of 26 mm. It was resected back to approximately 15 mm. Femoral preparation was performed via an intramedullary guide. Step drill allowed access into the femoral canal. The distal cutting guide was placed with 5? of valgus and 11 mm cut on the distal femur due to a 5-7 degree flexion contracture. Femur was sized using a anterior referencing guide in 3? of external rotation. This found have a best fit with the sizing noted above. The 4 in 1 cutting block was then placed, and the distal femur shaped accordingly. The box cut was then created and the trial implant inserted to confirm appropriate fit. We turned our attention to the proximal tibia. Extramedullary guide was utilized for cutting with the goal of being 90 degree cut from the mechanical axis of the tibia in the varus/valgus plane utilizing tibial crest as the primary alignment. Initially a 2 mm resection was performed from the medial tibial plateau. Ultimately, balancing was achieved in both flexion and extension in both varus and valgus. The knee was able to achieve full extension comfortably. It was sized to be a best fit with as noted above. The patella prep was completed with drilling and a trial placed. At this stage, trial implants were removed, the tibia and femoral components were opened and inserted. Thereafter, the patella was thoroughly irrigated normal saline and dried. The cement was previously mixed on the back table and cement placed followed by the implant. This was clamped and allowed remained stable until the cement cured. The real poly spacer was opened and inserted. All extra cement was removed, and a 3 min Betadine soak performed. Finally, a final irrigation round with normal saline was performed. Closure performed with 0 PDS and #0 Stratafix for the quad tendon/retinaculum. 2-0 Vicryl/Stratafix for the subcutaneous and 4-0 Monocryl for subcuticular closure. Dressings were applied and the patient was awoken from anesthesia after the tourniquet deflated and transferred the PACU in stable condition. A skilled investigative assistant was critical for this case to aid in patient positioning, tissue retraction, bone exposure, limb manipulation/positioning, patient safety, and closure. PLAN: 1. Weight bear as tolerated operative extremity. 2. 23 hr perioperative antibiotics. 3. Ice. 4. PT/OT consults for ambulation assistance/mobility education. 5. Social work consult for discharge planning. 6. DVT prophylaxis with at SCDs, Carmelo Hose, and aspirin twice daily.
--- NOTE | 2024-03-15 09:23 | W.PM.NB ---
Nerve Block Nerve Block Time Seen by Provider: 07:20 Date Seen: 03/15/24 Type of block requested by surgeon for post-operative analgesia: adductor canal Side: right Time out performed: Yes Verification of patient name: Yes Verification of date of : Yes Site marking: site marked Name of person performing procedure: Alessandro Continuous monitoring Was continuous monitoring of O2 sat, B/P, quality assurance monitor chassis, recorded every 15 minutes?: Yes Procedure Checklist: sterile prep, needles and gloves Ultrasound guided. Images saved: Yes Medications given in 5ml increments after negative aspiration: Ropivicaine %: 0.5 mL: 20 Needle gauge: 20 Decadron (mg): 10 Precedex (mcg): 25 Patient tolerated procedure well: Yes Additional comments: Needle noted adjacent to nerve Block Charges Block Charge (with Pro Fee): Femoral Nerve Use of Ultrasound Machine for Block: Yes- US Guidance/pain block
--- NOTE | 2024-03-15 09:24 | P.NB_ITS ---
Nerve Block Nerve Block Time Seen by Provider: 07:20 Date Seen: 03/15/24 Type of block requested by surgeon for post-operative analgesia: geniculars Side: right Time out performed: Yes Verification of patient name: Yes Verification of date of : Yes Site marking: site marked Name of person performing procedure: Alessandro Continuous monitoring Was continuous monitoring of O2 sat, B/P, quality assurance monitor body, recorded every 15 minutes?: Yes Procedure Checklist: sterile prep, needles and gloves Medications given in 5ml increments after negative aspiration: Ropivicaine %: 0.5 mL: 9 Needle gauge: 25 Patient tolerated procedure well: Yes Block Charges Block Charge (with Pro Fee): Genicular Nerve Block Use of Ultrasound Machine for Block: No
--- NOTE | 2024-03-15 09:24 | W.ANESCHARGE ---
Anesthesia Charges Start Date/Time Anesthesia Start Date: 03/15/24 Anesthesia Start Time: 07:28 Stop Date/Time Anesthesia Stop Date: 03/15/24 Anesthesia Stop Time: 09:48
--- NOTE | 2024-03-15 09:47 | CRLHL7_ITS ---
For Patients: As a result of the Cures Act, medical imaging exams and procedure reports are released immediately into your electronic medical record. You may view this report before your referring provider. If you have questions, please contact your health care provider. Indication: Postop knee radiographs Technique: Right knee 2 views Comparison: None Findings/impression: Post total knee arthroplasty. Hardware is intact without evidence of complication. Expected postoperative changes with gas within the knee joint and in subcutaneous soft tissues. Soft tissue swelling. No acute fracture or dislocation. Dictated by Marissa Carrillo MD @ 03/16/2024 9:47:13 AM (Electronically Signed)
--- NOTE | 2024-03-15 09:50 | W.ANESCHARGE ---
Anesthesia Charges Start Date/Time Anesthesia Start Date: 03/15/24 Anesthesia Start Time: 07:28 Stop Date/Time Anesthesia Stop Date: 03/15/24 Anesthesia Stop Time: 09:48
[2024-03-15] MEDS: HYDROmorphone 0.5 mg/0.5 ml inj IVP (09:58)
--- NOTE | 2024-03-15 11:07 | SUR.OPER ---
PATIENT QUESTIONS ANSWERED SATISFACTORILY PREOPERATIVELY.? PATIENT BROUGHT TO OR #2 PER CART AFTER ADMINISTRATION OF A BLOCK.? Patient positioned supine on OR #2 bed.? The perioperative?team supported arms bilaterally on arm boards.?Final approval of positioning by surgeon.?
[2024-03-15] MEDS: ACETAMINOPHEN 325 MG TABLET PO (12:16)
[2024-03-15] MEDS: hydrOXYzine pamoate 25 MG CAPSULE PO (12:16)
[2024-03-15] MEDS: OXYCODONE 5 MG TABLET PO (13:08)
== END 2024-03-15 14:15 | disposition home or self-care (01) ==
PROVIDERS: PCP Family Medicine; Visit Provider Orthopaedic Surgery Sports Medicine
PROC: (CPT 27447; principal; 2024-03-15 07:30)
DX: M17.11 Unilateral primary osteoarthritis, right knee (principal); M23.231 Derangement of other medial meniscus due to old tear or injury, right knee; G89.18 Other acute postprocedural pain
CPT/HCPCS: 27447; 01402; 64447; 64454; 73560; 76942; 97110; 97116; 97161; A9270; C1776; J0690; J1100; J1170; J2250; J2405; J2704; J2795; J3010; J7120

== ENCOUNTER 2024-05-10 09:30 | Outpatient (RCR) | payer OTHER, SELFPAY ==
--- NOTE | 2024-04-13 12:03 | PT.OPDN ---
[facility] Daily Note PT [facility] Daily Note Start: 03/17/24 08:25 Freq: Status: Active Protocol: Document 04/13/24 11:01 CJT (Rec: 04/13/24 12:03 CJT [id number]) E-signed By Silver Herrera, PT PT OP Daily Progress Note Visit Information Note Type Daily Note Visit Number 9 Insurance Authorized Visits auth pending Physician Authorized Visits eval and treat Insurance Information Recert Due Date 06/15/24 Insurance Name [employer] Medical Diagnosis S/P R TKA Treating Diagnosis S/P R TKA Referring Boni Fagan MD Subjective Preferred Name Dashawn Washington Went to the gym last night. Stretched for 5 minutes as hard as he could on the total gym and feels this was especially helpful. Notes improved ROM and strength following. Date of Next Physician Visit 03/24/24 Date of Surgery (If applicable) 03/15/24 Home Exercise Home Exercise Comments Access Code: [email or web address] URL: [email or web address] Date: 03/17/2024 Prepared by: Silver Herrera Program Notes These exercises are designed to bend and straighten your knee as well as restore firing of your quadriceps. You will likely have some pain with these exercises and that is okay. Keeping your knee moving and firing your quad will help to alleviate pain and restore function of your knee more quickly.? Exercises - Supine Ankle Pumps - 3 x daily - 7 x weekly - 1 sets - 10 reps - Supine Quad Set - 3 x daily - 7 x weekly - 1 sets - 10 reps - 5 seconds hold - Supine Isometric Hamstring Set - 3 x daily - 7 x weekly - 1 sets - 10 reps - 5 seconds hold - Supine Heel Slide - 3 x daily - 7 x weekly - 1 sets - 10 reps - Supine Heel Slide with Strap - 3 x daily - 7 x weekly - 1 sets - 10 reps - Supine Knee Extension Strengthening - 3 x daily - 7 x weekly - 1 sets - 10 reps - Active Straight Leg Raise with Quad Set - 3 x daily - 7 x weekly - 1 sets - 10 reps - Seated Long Arc Quad - 3 x daily - 7 x weekly - 1 sets - 10 reps - Supine Knee Extension Stretch on Towel Roll - 3 x daily - 7 x weekly - 1 sets - 1-5 minutes hold - Seated Passive Knee Extension - 3 x daily - 7 x weekly - 1 sets - 1-5 minutes hold Objective Other/Pertinent Objective R knee AROM: 0-3-118 Patient Instructed in Risks/Benefits Yes Therapeutic Exercise Therapeutic Exercise Minutes (minutes) 36 Therapeutic Exercise: To Restore Bike - 10 minutes, Seat 13->12 Functional Status , level 8 (knee mobility) Bike - 6 minutes, Seat 15, level 15 (Endurance) TG Squats x 20 TG Knee flexion stretch 3 x 30 Leg Press for knee flexion stretch , Seat 11 x 3 minutes, x 2 minutes; Seat 10 x 1 minute Calf press, 60# 3 x 15 Supine knee flexion stretch 2 x 2 minutes Supine knee extension stretch x 4 minutes Gastroc stretch with hands at wall x 60 ea Heel raises 2 x 15 Manual Therapy Techniques Manual Therapy Minutes (minutes) 10 Manual Therapy Techniques STM to R anterior knee to reduce tissue tension and improve extensibility. CFM to scar tissue to diminish adhesions. Gait & Stair Training Gait Training/Stairs Minutes (minutes) 10 Gait & Stair Training Comments Ambulation with VC for heel strike at initial contact, knee drive at pre-swing/intial -swing, arm swing, and increased mita. Treatment Minutes Timed Code Treatment Minutes 56 Total Treatment Time 56 Billing Units Gait Training/Stairs Units 1 Manual Therapy Units 1 Therapeutic Exercise Units 2 Assessment/Impression Assessment/Impression Dashawn has progressed well during his time in therapy. Today he measured 0-3-118 degrees of R knee AROM ( lacking 3 degrees extension). HIs knee is quite sore following today's session. Pts primary issue thus far is swelling of the R ankle limiting his DF with ambulation and passive knee flexion stretching. While this is improving slowly, this is his primary limiting factor. Pt to meet with Dr. Hayward tomorrow for follow-up. Recommend continued PT services to address deficits and return pt to highest level of function. Plan of Care Physical Therapy Goals STG - To be completed in 2-3 weeks: 1. Pt will report consistent use of ice as well as elevation of surgical limb while resting to reduce inflammation and swelling. MET 2. Pt will demonstrate 90 degrees of knee flexion on surgical limb to reduce risk of contracture development and progress through rehabilitation as expected. MET 3. Pt to show appropriate use of all AD's with minimal gait deviations and no LOB with all ambulation to reduce risk of falls and restore normal gait mechanics. MET 4. Pt will demo full knee extension to reduce risk of contracture in posterior knee and allow for ease of ambulation. NOT MET (lacking 3 degrees) LTG - To be completed in 8-12 weeks: 1. Pt to be I with HEP so that they may I manage progression of symptoms. 2. Pt will demonstrate 120 degrees knee flexion on surgical limb so that they may descend steps without restrictions in ROM. 3. Pt will perform 10+ squats of full depth with good control over medial/lateral deviation of knees to show improved functional strength to assist with transfers. 4. Pt will demonstrate 5/5 MMT knee flexion/extension of surgical limb to provide greater support to knee joint and allow for ease of ambulation. 5. Pt will ambulate with no AD and minimal gait deviations so that they may return to walking safely and comfortably for exercise and pleasure. Daily Plan of Care Continue per POC
== END 2024-07-27 15:22 | disposition home or self-care (01) ==
PROVIDERS: PCP Family Medicine; Visit Provider Orthopaedic Surgery Sports Medicine
DX: M17.11 Unilateral primary osteoarthritis, right knee (principal); Z96.651 Presence of right artificial knee joint; Z51.89 Encounter for other specified aftercare
CPT/HCPCS: 97016; 97110; 97116; 97140; 97161; A9270; J0690; J1100; J2250; J2405; J2704